=== PATIENT | female | born 1990 | race Hispanic/Latino ===

== ENCOUNTER 2018-01-03 01:01 | Day surgery (SDC) | payer OTHER ==
[2018-01-03 01:34] VITALS: BMI 32.9
--- NOTE | 2018-01-03 03:48 | PRG ---
DATE OF SERVICE: 01/03/2018 PRIMARY OB: Liza Torres CNMW CHIEF COMPLAINT: Abdominal pains. HISTORY OF PRESENT ILLNESS: The patient is a 27-year-old female G2, P0 with an intrauterine pregnanc y at 39 weeks and 3 days who is reporting that she has been having uterine contractions about every 1 0-15 minutes apart where she is feeling her abdomen get hard. She has also been having some vaginal pain and pressure with activity and movement. She has been told that her babysitting really low in h er pelvis and this is causing her pain. The patient denies any vaginal bleeding or leakage of fluid. She denies any fever or fall, headache, chest pain, shortness of breath, nausea, vomiting, diarrhea , constipation. She denies any new significant rashes. She does have leg pain and low back pain. D enies any urinary urgency. PAST MEDICAL HISTORY: Negative. PAST SURGICAL HISTORY: Negative. SOCIAL HISTORY: Denies drug, alcohol or tobacco use. ALLERGIES: No known drug allergies. MEDICATIONS: vitamins. OB HISTORY: She has had 1 first trimester loss at 7 weeks. OB LABS: Blood type is O positive, antibody screen is negative, HIV is nonreactive. RPR is nonreact marylou. Hepatitis B surface antigen is nonreactive. One hour Glucola was 136. She is GBS negative, HI V is nonreactive. REVIEW OF SYSTEMS: Per HPI. PHYSICAL EXAMINATION: VITAL SIGNS: Blood pressure 129/80, pulse is 60, respiratory rate 18, satting 100% on room air, temp erature 97.4. GENERAL: She appears to be in no acute distress. She is alert and oriented, and cooperative and ple asant to interact with. HEENT: Normocephalic, atraumatic. LUNGS: Clear to auscultation bilaterally. HEART: Regular rate and rhythm. ABDOMEN: Soft. She has some tenderness with deviation of the uterus in her lower pelvis. EXTREMITIES: Nontender with minimal edema bilaterally. CERVICAL: She is 275 and -1 station. heart tracing performed for abdominal pains, threatened labor. Baseline is noted to be in the 130s with moderate long-term variability, positive acceleratio ns, no decelerations. Tocometer showing contractions with irritability and better every 2 minutes, a gain felt only about every 10-15 minutes. ASSESSMENT AND PLAN: The patient is a 27-year-old female with an intrauterine at 39 weeks who is having contractions and ligament pain. Baby is low in the pelvis causing a lot of disco mfort. Pain medication has been offered, which has been declined. Plan is to monitor the patient fo r 2 hours. If she has made no cervical change, she will be discharged to home. She has an appointme nt at 10 in the morning with her primary OB, Liza MURPHY. Fetus has a category 1 tracing.
== END 2018-01-03 04:45 | disposition home or self-care (01) ==
LOC: L&D/OP 01:01
PROVIDERS: ATTEND Student in an Organized Health Care Education/Training Program
DX: O47.1 False labor at or after 37 completed weeks of gestation (principal); Z79.899 Other long term (current) drug therapy; Z3A.39 39 weeks gestation of pregnancy
CPT/HCPCS: 99282

== ENCOUNTER 2018-01-07 14:43 | Inpatient (IN) | payer MEDICAID, OTHER, SELFPAY ==
[2018-01-14] MEDS ORDERED: Ondansetron HCl/PF 4 MG/2 ML Vial IVP PRN ×2 (09:57→22:40)
[2018-01-14] MEDS ORDERED: Lidocaine 1% (PF) 30 ML VIAL SC PRN (09:57)
[2018-01-14] MEDS ORDERED: HYDROcodone/Acetaminophen 5/325 mg Tablet PO PRN ×2 (09:57)
[2018-01-14] MEDS ORDERED: Misoprostol 200 MCG TAB PR PRN (09:57)
[2018-01-14] MEDS ORDERED: Promethazine HCl 25 MG/ML VIAL IM PRN ×2 (09:57→22:40)
[2018-01-14] MEDS ORDERED: Ibuprofen 800 MG TAB PO PRN (09:57)
[2018-01-14] MEDS ORDERED: LR / Pitocin 40 units/1000 ml 1,000 ML IV PRN (09:57)
[2018-01-14] MEDS ORDERED: Methylergonovine 0.2 MG/ML VIAL IM PRN (09:57)
[2018-01-14] MEDS ORDERED: LR 500 ML/Oxytocin 10 units 500 ML IV SCH (10:00)
[2018-01-14 10:41] VITALS: BMI 34.0
[2018-01-14 11:15] LABS: Hemoglobin 11.7 g/dL (12.0-16.0); Mean Corpuscular HGB CONC 34.5 g/dL (32.0-36.0); Mean Corpuscular Hemoglobin 30.1 pg (27.0-31.0); Mean Corpuscular Volume 87.3 fl (81.0-99.0); Mean Platelet Volume 8.4 fL (7.4-10.4); Platelet Count 218 thou/uL (130-400); RBC Distribution Width 13.5 % (11.5-14.5); Red Blood Cell (RBC) Count 3.89 mill/uL (4.20-5.40); White Blood Cell (WBC) Count 7.1 thou/uL (4.8-10.8)
[2018-01-14 12:08] LABS: Syphilis Antibody Nonreactive (Nonreactive); Syphilis Antibody Index 0.05 S/CO (<1.00 Non-Reactive)
[2018-01-14 12:19] LABS: HBSAg Index 0.17 S/CO (0-0.99); Hep B Surf Ag Non-Reactive S/CO (NonReactive)
--- NOTE | 2018-01-14 17:33 | PDOC.LDHP ---
Labor and Delivery H&P Chief complaint: other (post dates induction of labor) HPI: patient states she is tired of waiting for baby to come and does not want wait any longer. She would like to be induced today. Current gestational age (weeks): 41 Due date: 01/07/18 Dating criteria: last menstrual period Grav: 1 Para: 0 OB History Details: current Current complications: other (post dates) Abnormal US findings: No Current medications: pre-adam vitamins Allergies/Adverse Reactions: Allergies Allergy/AdvReac Type Severity Reaction Status Date / Time No Known Allergies Allergy Verified 01/14/18 10:42 - Physical Exam Heart: RRR Lungs: nonlabored breathing Abdomen: gravid Extremeties: no edema FHT: category 1 [place] contractions every: [id number] - Vaginal Exam cm dilated: 3 Effacement: 90% Station: 1+ - Plan -: cooks balloon placed with our difficulty. 60ml on each side of balloon.
--- NOTE | 2018-01-14 17:38 | PDOC.LDPN ---
Labor & Delivery Progress Note - Subjective Subjective: comfortable (contactions are getting stronger, but not closer together) - Objective Vital signs reviewed and normal: yes General: NAD Uterine fundus: non tender Dilation: 4 Effacement: 90% Station: 1+ FHT: category 1 [place] contractions every: Irregular. Q20 mins Procedures: dc cooks balloon AROM: meconium stained fluid - Assessment (1) Post-dates Code(s): O48.0 - POST-TERM Current Visit: Yes Status: Acute (2) Primigravida Code(s): Z34.00 - ENCNTR FOR SUPRVSN OF NORMAL FIRST , UNSP TRIMESTER Current Visit: Yes Status: Acute Plan: continue plan of care (reassess for pitocin after two hours.)
[2018-01-14] MEDS: Lactated Ringer's 1,000 ML IV PRN ×2 (18:25→21:57)
[2018-01-14] MEDS ORDERED: Bupivacaine 0.5% 20 ML, Fentanyl 400 MCG in Sodium Chloride 0.9% 72 ML EPIDURAL SCH (22:00)
[2018-01-14] MEDS ORDERED: DISCONTINUE ALL PREVIOUS NARCOTICS FS SCH (22:00)
[2018-01-14] MEDS ORDERED: Acetaminophen 325 MG TAB PO PRN (22:40)
[2018-01-14] MEDS ORDERED: Naloxone HCl 0.4 mg/ml Vial IVP PRN ×2 (22:40)
[2018-01-14] MEDS ORDERED: Eucerin (Mineral Oil/Petrolatum,White) 30 gm Jar TOP PRN (22:40)
[2018-01-14] MEDS ORDERED: diphenhydrAMINE 50 MG/ML VIAL IVP PRN (22:40)
[2018-01-14] MEDS ORDERED: ePHEDrine/0.9% NaCl/PF SYRINGE 50 mg/10 ml SLOW IVP PRN (22:40)
[2018-01-14] MEDS ORDERED: Lactated Ringer's 500 ML IV PRN (22:40)
[2018-01-14] MEDS ORDERED: Fentanyl 4mcg/Marcaine 0.1% Cassette 100 ML EPIDURAL SCH (22:45)
[2018-01-14] MEDS ORDERED: Communication Order-Pharmacy FS SCH (22:45)
[2018-01-15] MEDS ORDERED: Misoprostol 200 MCG TAB ONE (03:28)
--- NOTE | 2018-01-15 04:00 | PDOC.OPDEL ---
OB Operative/Delivery Note Delivery Dr/Surgeon: Kerry moore CNM Pre-Delivery Diagnosis: other (post dates induction of labor) Procedure/Post Delivery Dx: spontaneous vaginal delivery Weeks gestation: 41 Anesthesia: epidural - Findings A Sex: female Weight: 8 lb 4 oz - 1 min: 8 - 5 min: 9 - Additional Findings/Plan Placenta delivered: spontaneous Repaired Obstetrical Laceration: 2nd degree Estimated blood loss: 400 Compilations/Other Findings: cytotec given [place] for brisk bleeding following delivery of placenta. uterus firm with massage, Pitocin IV, and [place] cytotec. Post delivery plan: routine recovery
[2018-01-15] MEDS ORDERED: Lanolin Ointment 7 GM TUBE TOP PRN (05:51)
[2018-01-15] MEDS ORDERED: Bisacodyl 10 MG SUPP PR PRN (05:51)
[2018-01-15] MEDS ORDERED: Adacel (T-DAP) 0.5 ML VIAL IM ONE (05:51)
[2018-01-15] MEDS ORDERED: HYDROcodone/Acetaminophen 5/325 mg Tablet PO PRN (05:51)
[2018-01-15] MEDS ORDERED: Ondansetron HCl/PF 4 MG/2 ML Vial IVP PRN (05:51)
[2018-01-15] MEDS ORDERED: Misoprostol 200 MCG TAB VAG SCH (05:51)
[2018-01-15] MEDS ORDERED: LR / Pitocin 40 units/1000 ml 1,000 ML IV SCH (05:51)
[2018-01-15] MEDS ORDERED: Methylergonovine 0.2 MG/ML VIAL IM PRN (05:51)
[2018-01-15] MEDS ORDERED: Benzocaine/Menthol 20-0.5% 60 ML CAN TOP PRN (05:51)
[2018-01-15] MEDS ORDERED: Varicella virus, LIVE 0.5 ML VIAL SC ONE (05:51)
[2018-01-15] MEDS ORDERED: Measles/Mumps/Rubella 10 MCG/0.5 ML VIAL SC ONE (05:51)
[2018-01-15] MEDS ORDERED: Milk Of Magnesia 30 ML UDCUP PO PRN (05:51)
[2018-01-15] MEDS: Docusate Calcium (SURFAK) 240 MG CAP PO SCH ×2 (08:57→21:49)
[2018-01-15] MEDS: Prenatal Vitamin 1 TAB PO SCH (08:57)
[2018-01-15] MEDS ORDERED: Bupivacaine 0.25% HCL 30 ML VIAL ONE (09:54)
[2018-01-15] MEDS: Ibuprofen 800 MG TAB PO SCH ×5 (14:19→21:49)
[2018-01-15] MEDS: Ferrous Sulfate 325 MG TAB PO SCH ×2 (14:53→18:33)
[2018-01-16 05:58] LABS: Hemoglobin 7.2 g/dL (12.0-16.0); Mean Corpuscular HGB CONC 33.8 g/dL (32.0-36.0); Mean Corpuscular Hemoglobin 30.8 pg (27.0-31.0); Mean Corpuscular Volume 91.1 fl (81.0-99.0); Mean Platelet Volume 7.7 fL (7.4-10.4); Platelet Count 174 thou/uL (130-400); Red Blood Cell (RBC) Count 2.35 mill/uL (4.20-5.40); White Blood Cell (WBC) Count 14.4 thou/uL (4.8-10.8)
[2018-01-16] MEDS: Ibuprofen 800 MG TAB PO SCH ×3 (06:10→21:50)
[2018-01-16] MEDS: Ferrous Sulfate 325 MG TAB PO SCH ×2 (08:52→17:14)
[2018-01-16] MEDS: Docusate Calcium (SURFAK) 240 MG CAP PO SCH ×2 (08:52→21:49)
[2018-01-16] MEDS: Prenatal Vitamin 1 TAB PO SCH (08:52)
[2018-01-16] MEDS ORDERED: FLU VACC QS2017-18 36 mo. & older 0.5 ML SYRINGE IM ONE (09:00)
[2018-01-16] MEDS: HYDROcodone/Acetaminophen 5/325 mg Tablet PO PRN (13:01)
[2018-01-16 23:09] VITALS: TEMP 98.5
[2018-01-17] MEDS: HYDROcodone/Acetaminophen 5/325 mg Tablet PO PRN ×2 (02:35→08:15)
[2018-01-17] MEDS: Ibuprofen 800 MG TAB PO SCH ×2 (05:49→15:28)
[2018-01-17] MEDS: Ferrous Sulfate 325 MG TAB PO SCH (08:15)
[2018-01-17] MEDS: Prenatal Vitamin 1 TAB PO SCH (08:15)
[2018-01-17] MEDS: Docusate Calcium (SURFAK) 240 MG CAP PO SCH (08:15)
[2018-01-17 08:41] VITALS: BP 138/74
== END 2018-01-17 16:50 | disposition home or self-care (01) | DRG 775 ==
LOC: L&D 01-14 09:45 → 3SW 01-15 05:36
PROVIDERS: ADMIT Student in an Organized Health Care Education/Training Program; ATTEND Student in an Organized Health Care Education/Training Program
PROC: 10E0XZZ Delivery of Products of Conception, External Approach (ICD-10-PCS; principal; 2018-01-17)
PROC: 0KQM0ZZ Repair Perineum Muscle, Open Approach (ICD-10-PCS; 2018-01-17)
PROC: 0U7C7ZZ Dilation of Cervix, Via Natural or Artificial Opening (ICD-10-PCS; 2018-01-17)
PROC: 3E033VJ Introduction of Other Hormone into Peripheral Vein, Percutaneous Approach (ICD-10-PCS; 2018-01-17)
PROC: 10907ZC Drainage of Amniotic Fluid, Therapeutic from Products of Conception, Via Natural or Artificial Opening (ICD-10-PCS; 2018-01-17)
DX: O48.0 Post-term pregnancy (principal); O70.1 Second degree perineal laceration during delivery; Z37.0 Single live birth; Z3A.41 41 weeks gestation of pregnancy
CPT/HCPCS: 36415; 51702; 85027; 86780; 87340; C1726; J0595; J2001; J3010; J3490; J7050; J7120; S0020

== ENCOUNTER 2019-10-05 07:59 | Outpatient (CLI) | payer OTHER ==
--- NOTE | 2019-10-05 10:15 | ULT ---
ULTRASOUND RIGHT BREAST: Date: 10/05/19 HISTORY: Right breast mass. COMPARISON: Ultrasound from 2015. FINDINGS: The right breast mass at 2 o'clock, wider than tall with increased through-transmission, has a slight ly increased cystic degeneration indicating cystic degeneration of a fibroadenoma. This mass measures 1.3 cm in transverse dimension. IMPRESSION: BI-RADS Category 2 - Benign findings. Cystic degeneration of fibroadenoma. POS: OFF
== END 2019-10-05 08:00 | disposition home or self-care (01) ==
LOC: BICULT 07:59
PROVIDERS: ATTEND Family Medicine
DX: Z87.898 Personal history of other specified conditions (principal); D24.1 Benign neoplasm of right breast

== ENCOUNTER 2021-03-29 07:37 | Outpatient (CLI) | payer OTHER | END 2021-03-29 07:38 | disposition home or self-care (01) | LOC: BICULT 07:37 | PROVIDERS: ATTEND Family Medicine | DX: Z34.82 Encounter for supervision of other normal pregnancy, second trimester (principal); Z3A.20 20 weeks gestation of pregnancy | CPT/HCPCS: 76805 ==